=== PATIENT | female | born 1990 | race Caucasian/White ===

== ENCOUNTER 2017-01-01 23:43 | Emergency (ER) | payer OTHER ==
[~2017-01-01 23:43] MED LIST: MACROBID100 MG PO
[2017-01-01] MEDS ORDERED: NO MEDICATIONS (23:54)
[2017-01-02 01:09] LABS: URINE SOURCE CLEAN CATCH
[2017-01-02 01:11] LABS: URINE APPEARANCE CLOUDY; URINE BLOOD 3+ (NEG); URINE COLOR AMBER; URINE GLUCOSE NEG (NORM); URINE KETONE TRACE (NEG); URINE LEUKOCYTE ESTERASE 2+ (NEG); URINE NITRATE NEG (NEG); URINE PROTEIN 2+ (NEG); URINE SPECIFIC GRAVITY 1.025 (1.003-1.035)
[2017-01-02 01:15] LABS: MICRO INDICATED? YES; URINE BILIRUBIN NEG (NEG)
[2017-01-02 01:23] LABS: CULTURE INDICATED? YES; URINE AMORPHOUS SEDIMENT AMORP URATES; URINE BACTERIA 2+ (NEG); URINE MUCUS PRESENT; URINE RBC 100-200 /[HPF] (0-2); URINE SQUAMOUS EPITHELIAL CELL FEW /[HPF]; URINE WBC INNUM /[HPF] (0-5)
[2017-01-02] MEDS ORDERED: PYRIDIUM PO (02:15)
[2017-01-02] MEDS ORDERED: KEFLEX500 MG PO (02:15)
== END 2017-01-02 02:15 | disposition home or self-care (01) ==
LOC: SED 23:43
PROVIDERS: Emergency Medicine
DX: N39.0 Urinary tract infection, site not specified (principal); F17.210 Nicotine dependence, cigarettes, uncomplicated
CPT/HCPCS: 81003; 84703; 87086; 87088; 87186; 99283